=== PATIENT | male | born 1960 | race Caucasian/White ===

== ENCOUNTER 2017-06-19 16:26 | Emergency (ER) | payer OTHER ==
[~2017-06-19] VITALS: Ht 182.9 cm; Wt 87.5 kg
[~2017-06-19 16:26] MED LIST: MULTIVITAMINS1 EAC7 PO; PRAMOSONE 2.528.4 GM TOP
[2017-06-27] MEDS ORDERED: ADVIL200 M1 PO (16:09)
[2017-07-26] MEDS ORDERED: NORCO 5-325 TA1 EACH PO (09:46)
== END 2017-06-19 17:14 | disposition home or self-care (01) ==
LOC: ED 16:26
DX: K40.90 Unilateral inguinal hernia, without obstruction or gangrene, not specified as recurrent (principal)
CPT/HCPCS: 80053; 83605; 83690; 85025; 99283